=== PATIENT | male | born 2000 | race Caucasian/White ===

== ENCOUNTER 2018-01-07 23:43 | Emergency (ER) | payer OTHER ==
[~2018-01-07] VITALS: Ht 180.3 cm; Wt 79.4 kg
== END 2018-01-08 01:29 | disposition home or self-care (01) ==
LOC: ER 23:43
DX: S51.812A Laceration without foreign body of left forearm, initial encounter (principal); Z23 Encounter for immunization; W01.0XXA Fall on same level from slipping, tripping and stumbling without subsequent striking against object, initial encounter
CPT/HCPCS: 12002; 90471; 90714; 99282